=== PATIENT | male | born 1965 | race Caucasian/White ===

== ENCOUNTER 2019-02-14 12:47 | Emergency (ER) | payer BC, SELFPAY ==
[2019-02-14 13:35] LABS: #Basophils 0.1 thou/uL (0.0-0.2); #Eosinphils 0.1 thou/uL (0.0-0.7); #Lymphocytes 1.1 thou/uL (1.20-3.40); #Monocytes 0.7 thou/uL (0.11-0.59); #Neutrophils 5.6 thou/uL (1.40-6.50); %Basophils 0.9 % (0.0-1.0); %Eosinophils 1.1 % (0.0-10.0); %Lymphocytes 14.1 % (21.0-51.0); %Monocytes 9.7 % (0.0-10.0); %Neutrophils 74.3 % (42.0-75.0); Hemoglobin 14.3 g/dL (14.0-18.0); Mean Corpuscular HGB CONC 34.9 g/dL (32.0-36.0); Mean Corpuscular Hemoglobin 32.5 pg (27.0-31.0); Mean Corpuscular Volume 93.3 fL (78.0-98.0); Mean Platelet Volume 7.4 fL (7.4-10.4); Platelet Count 197 thou/uL (130-400); Red Blood Cell (RBC) Count 4.38 mill/uL (4.70-6.10); White Blood Cell (WBC) Count 7.5 thou/uL (4.8-10.8)
[2019-02-14] MEDS ORDERED: ISOVUE-370 76%-LOCM 1 ML ONE (13:58)
[2019-02-14 14:02] LABS: ALT (SGPT) 20 U/L (8-55); AST (SGOT) 21 U/L (5-34); Albumin 4.4 g/dL (3.5-5.0); Alkaline Phosphatase 67 U/L (40-150); Anion Gap 13 mmol/L (10-20); BUN (Urea Nitrogen) 15 mg/dL (8.4-25.7); Bilirubin, Total 0.4 mg/dL (0.2-1.2); Calc. Creatinine Clearance 0 mL/min (70-130); Calcium 9.5 mg/dL (7.8-10.44); Carbon Dioxide 24 mmol/L (22-29); Chloride 106 mmol/L (98-107); Estimated GFR-MDRD 65; Globulin 3.6 g/dL (2.4-3.5); Glucose 84 mg/dL (70-105); Sodium 139 mmol/L (136-145)
--- NOTE | 2019-02-14 14:03 | RAD ---
FRONTAL RADIOGRAPH CHEST: Date: 02/14/19 COMPARISON: None. HISTORY: Shortness of breath. FINDINGS: Evaluation of the heart and mediastinal contours is limited secondary to rotation to the right and sh allow inspiration. Patient is also imaged in a kyphotic position. There is no pneumothorax or pleural fluid, and no focal consolidation or alveolar edema. IMPRESSION: No focal consolidation or alveolar edema. POS: [facility]
[2019-02-14 14:14] LABS: PTT 29.8 SEC (22.9-36.1); Prothrombin Time 13.1 SEC (12.0-14.7)
--- NOTE | 2019-02-14 15:39 | CT ---
Exam: CT angiogram of the chest HISTORY: Chest pain COMPARISON: None TECHNIQUE: CT angiogram of the chest is performed in the axial plane. Three-dimensional reformatted i mages are submitted for interpretation FINDINGS: Mediastinum: No mass, lymphadenopathy or hematoma. HEART: Normal size. No significant pericardial fluid. Aorta: No aneurysm or dissection Upper solid abdominal viscera: No abnormal enhancement. Moderate hiatal hernia is noted. Trachea and central bronchi: Patent Pleural spaces: No pleural fluid Lung parenchyma: Groundglass opacities involving the superior segment of the left lower lobe. Depende nt atelectatic changes in both lower lobes. Pneumothorax: None Osseous structures: No lytic or blastic lesions Pulmonary arteries:Filling defects involving segmental and subsegmental arteries supplying right uppe r lobe, right lower lobe, lingula and left lower lobe. IMPRESSION: 1. Bilateral pulmonary artery emboli 2. Groundglass opacity involving the superior segment left lower lobe. Correlate for infarct versus i nfiltrate. Results of study discussed with 02/14/2019 at 2:03 PM
--- NOTE | 2019-02-14 15:39 | ULT ---
EXAM: Right lower extremity venous duplex: Deep veins evaluated with color Doppler, spectral analysis, and compression. INDICATIONS: Right lower extremity pain and edema. FINDINGS: Deep veins interrogated include common femoral vein, femoral vein, popliteal vein, and post erior tibial vein. There is lack of normal compressibility and flow within posterior tibial vein. No additional evidence of DVT identified within the imaged right lower extremity. IMPRESSION: Evidence of DVT within the right lower extremity.
[2019-02-14] MEDS ORDERED: Rivaroxaban 15 MG TAB PO SCH (16:00)
== END 2019-02-14 16:20 | disposition home or self-care (01) ==
LOC: ERS 12:47
DX: I26.99 Other pulmonary embolism without acute cor pulmonale (principal); I82.4Z1 Acute embolism and thrombosis of unspecified deep veins of right distal lower extremity
CPT/HCPCS: 71045; 71275; 80053; 83880; 84484; 85025; 85610; 85730; 93005; Q9966